=== PATIENT | male | born 1960 | race Caucasian/White ===

== ENCOUNTER 2018-04-11 14:15 | Emergency (ER) | END 2018-04-11 15:51 | disposition home or self-care (01) ==

== ENCOUNTER 2019-01-12 12:30 | Emergency (ER) | payer OTHER ==
[~2019-01-12] VITALS: Ht 160 cm; Wt 72.1 kg
[~2019-01-12 12:30] MED LIST: CEPH-443 PO; D-ME473S2 PO; LORA10TA3 PO; MELO7.5T38 PO; TRAM50TA2 PO
[2019-01-12 12:41] VITALS: BP 145/99; PULSE 93; RESP 18; Ht 160 cm; Wt 72.1 kg
--- NOTE | 2019-01-12 13:08 | ERD ---
ER Documentation Chief Complaint Chief Complaint left sided back and left arm pain x 14 days-lower to midback; denies cp HPI Patient is a 58 years old male presenting to the ED for mid back pain radiating to entire left hand x 5 days. Patient was seen by his PCP and was prescribed Robaxin and ibuprofen without resolution. Patient reports numbness and paraesthesia of left shoulder and left upper extremity. Patient reports symptoms came about after waking up from sleep. 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 Patient denies heavy lifting with average objects weighing 2lbs. Patient reports that he did not get any imaging and is requesting X-rays. ROS All systems reviewed and are negative except as per history of present illness. Medications Home Meds Active Scripts Meloxicam* (Meloxicam*) 7.5 Mg Tablet, 7.5 MG PO DAILY, #30 TAB Prov:SHARON VERONICA PA-C 01/12/19 Loratadine* (Loratadine*) 10 Mg Tablet, 10 MG PO DAILY for 7 Days, #7 TAB Prov:MISSY VARGAS MD 04/11/18 Dextromethorphan Hb-Promethazine Hcl* (Promethazine DM* Syrup) 473 Ml Syrup, 5 ML PO Q6 PRN for COUGH, #60 ML Prov:MISSY VARGAS MD 04/11/18 Cephalexin* (Keflex*) 500 Mg Capsule, 500 MG PO TID for 7 Days, CAP Prov:MISSY VARGAS MD 04/11/18 Allergies Allergies: Coded Allergies: No Known Allergy (Unverified , 04/11/18) PMhx/Soc History of Surgery: No Anesthesia Reaction: No Hx Neurological Disorder: No Hx Respiratory Disorders: No Hx Cardiac Disorders: No Hx Psychiatric Problems: No Hx Miscellaneous Medical Probl: No Hx Alcohol Use: No Hx Substance Use: No Hx Tobacco Use: No Physical Exam Vitals Vital Signs Date Temp Pulse Resp B/P (MAP) Pulse Ox O2 O2 Flow FiO2 Time Delivery Rate 01/12/19 97.7 93 18 145/99 97 12:41 (114) Physical Exam Const: No acute distress Head: Atraumatic Eyes: Normal Conjunctiva ENT: Normal External Ears, Nose and Mouth. Neck: Full range of motion. No meningismus. Resp: Clear to auscultation bilaterally Cardio: Regular rate and rhythm, no murmurs Abd: Soft, non tender, non distended. Normal bowel sounds Skin: No petechiae or rashes Back: No midline or flank tenderness Ext: No cyanosis, or edema Neur: Awake and alert Psych: Normal Mood and Affect Results 24 hrs Current Medications Medications Dose Sig/Nani Start Time Status Last (Trade) Ordered Route PRN Stop Time Admin Dose Reason Admin Ketorolac 30 mg ONCE STAT 01/12/19 DC 01/12/19 Tromethamine IM 13:10 01/12/19 13:18 (Toradol) 13:12 1,500 mg ONCE ONCE 01/12/19 DC 01/12/19 Methocarbamol PO 13:30 01/12/19 13:21 (Robaxin) 13:31 Procedures/MDM Patient was seen and evaluated for thoracic and neck pain with radiating left a rm pain. Cervical x-ray and thoracic x-ray revealed: 1. No acute fractures or traumatic subluxations 2. Mild degenerative enthesopathy C3-C7 3. Mild facet sclerosis at the C7-C1 level 1. Normal thoracic spine series 2. Mild atherosclerotic vascular disease Patient is stable and ready for discharge. F/U with PCP. Patient will be discharged with meloxicam. Departure Diagnosis: Primary Impression: Cervicalgia Additional Impression: Thoracic back pain Chronicity: acute Back pain laterality: midline Qualified Codes: M54.6 - Pain in thoracic spine Condition: Stable Patient Instructions: Neck Pain, No Trauma, Back Pain (Acute Or Chronic) Referrals: [facility] Additional Instructions: Paciente aconseja volver a Departamento de urgencias inmediatamente para sntomas nuevos o que empeoran . Paciente aconseja posteriores con el PCP en 2-3 larios . Paciente verbaliza la comprehensin y est de acuerdo con el tratamiento y el curso de accin. Si el paciente no tiene ninguna de atencin primaria pueden seguir con [facility] [id number] [place] [address] o [facility] + [address] [phone] SHARON VERONICA PA-C Jan 12, 2019 13:08
[2019-01-12] MEDS ORDERED: KETOROLAC 30 MG INJ IM STA (13:10)
[2019-01-12] MEDS ORDERED: METHOCARBAMOL 750 MG TAB PO ONE (13:30)
== END 2019-01-12 14:44 | disposition home or self-care (01) ==
LOC: FTE 12:30
DX: M54.2 Cervicalgia (principal); M54.6 Pain in thoracic spine
CPT/HCPCS: 72040; 72072; 96372; J1885; Z7502

== ENCOUNTER 2019-01-22 18:29 | Emergency (ER) | payer OTHER ==
[~2019-01-22] VITALS: Ht 160 cm; Wt 74.6 kg
[2019-01-22 18:34] VITALS: Ht 160 cm; Wt 74.6 kg
[2019-01-22] MEDS ORDERED: KETOROLAC 60 MG INJ IM STA (19:48)
[2019-01-22 20:35] VITALS: BP 170/100; PULSE 68; RESP 20
== END 2019-01-22 20:39 | disposition home or self-care (01) ==
LOC: FTE 18:29
DX: M54.12 Radiculopathy, cervical region (principal)
CPT/HCPCS: 93005; 96372; J1885; Z7502